=== PATIENT | female | born 1970 | race Two or more races ===

== ENCOUNTER → 2025-04-01 | Outpatient (CLI) | payer MEDICAID, SELFPAY ==
--- NOTE | 2025-04-01 14:00 | XR_ITS ---
Examination: Diagnostic digital mammography, bilateral Computer aided detection 3-D breast Tomosynthesis, bilateral Date and time of exam: April 01, 2025 1352 hours Compared to mammograms dating to February 22, 2024 INDICATIONS: Right breast pain beginning 4 months ago Technique: Nonmagnified MLO, CC views of the breasts to been obtained, reconstructed from 3-D Tomosynthesis images. R2 computer aided detection program utilized for evaluation of suspicious masses and/or abnormal calcifications. 3-D Tomosynthesis images obtained. Findings: Scattered areas of fibroglandular density Stable 5 mm nodule outer left breast anterior depth No interval suspicious masses Impression: BI-RADS Category 2: Benign findings Recommend yearly follow-up mammography.
== END | disposition home or self-care (01) ==
LOC: CDIM 13:45
PROVIDERS: Referring Provider Nurse Practitioner Family; Visit Provider Nurse Practitioner Family
DX: R92.323 Mammographic fibroglandular density, bilateral breasts (principal)
CPT/HCPCS: 77062; 77066; G0279